=== PATIENT | male | born 1970 | race Caucasian/White ===

== ENCOUNTER 2022-12-25 08:57 | Emergency (ER) | payer OTHER, SELFPAY ==
[2022-12-25 09:02] VITALS: BP 170/100; PULSE 98; RESP 18; TEMP 36.4; O2SAT 100; BMI 21.9
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
--- NOTE | 2022-12-25 09:13 | XR_ITS ---
The [address] [address] Patient Name: ALVA ANGELES MRN: [id number] date: 1970 Sex: M Assigned Patient Location: ER Current Patient Location: ED.MAIN Accession/Order Number: [id number] Exam Date: 12/25/2022 09:30 Report Date: 12/25/2022 10:05 At the request of: QUOC STAFFORD Procedure: XR acute abdomen series EXAMINATION: XR acute abdomen series 12/25/2022 7:01 AM PDT HISTORY: FB COMPARISONS: None. FINDINGS: Chest findings: Lines/tubes/other: None. Heart and mediastinum: The heart and the mediastinum are within normal limits for technique. Bones: No acute osseous abnormality. Lungs: The lungs are clear. There is no evidence of pneumonia or pulmonary edema. Pleura: There is no significant pleural effusion or pneumothorax. Other: None. Abdominal findings: Nonobstructive bowel gas pattern. No pneumoperitoneum, pneumatosis, or portal venous gas. No abnormal soft tissue calcifications. Paperclip marker indicates the right lower quadrant puncture wounds. No associated radiopaque foreign body. XR/XR acute abdomen series IMPRESSION: No radiopaque foreign body or pneumoperitoneum demonstrated. Electronically authenticated by: SIERRA DOCKERY Date: 12/25/2022 10:05
--- NOTE | 2022-12-25 09:13 | XR_ITS ---
The [address] [address] Patient Name: ALVA ANGELES MRN: [id number] date: 1970 Sex: M Assigned Patient Location: ER Current Patient Location: Accession/Order Number: [id number] Exam Date: 12/25/2022 09:30 Report Date: 12/25/2022 11:01 At the request of: QUOC STAFFORD Procedure: XR humerus RT STUDY: XR humerus RT, [id number] HISTORY: FB COMPARISON: None FINDINGS: No acute fracture, dislocation, or suspicious osseous lesion. Paperclip marker placed at the site of the soft tissue puncture wound. No associated radiopaque foreign body or acute osseous abnormality. XR/XR humerus RT IMPRESSION: No radiopaque foreign body. Electronically authenticated by: SIERRA DOCKERY Date: 12/25/2022 11:01
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
[2022-12-25] MEDS: BACITRACIN 0.9 GM PACKET 1 PACKET TOPICAL (10:35)
[2022-12-25 10:41] VITALS: BP 178/120
== END 2022-12-25 10:43 | disposition home or self-care (01) ==
PROVIDERS: Emergency Provider Emergency Medicine; PCP Family Medicine
DX: S40.811A Abrasion of right upper arm, initial encounter (principal); S30.811A Abrasion of abdominal wall, initial encounter; I10 Essential (primary) hypertension; W34.010A Accidental discharge of airgun, initial encounter; F17.210 Nicotine dependence, cigarettes, uncomplicated
CPT/HCPCS: 73060; 74022; 99284